=== PATIENT | female | born 1945 | race Caucasian/White ===

== ENCOUNTER → 2021-04-03 | Outpatient (CLI) | payer MEDICARE, BC ==
[~2021-04-03] MED LIST: ANASTROZOLE1 MG PO; ASPIRIN325 PO; CALCIUM 600 +1 EAC1 PO; METAMUCIL PAC1 UDPKT PO; MILK OF MA2400 MG/10 PO; NEURONTIN 300300 M1 PO; OXYCODONE HCL 55 MG PO; VITAMIN D2000 UNIT PO
== END ==
LOC: M.MRI 14:23
PROVIDERS: ATTEND Psychiatry & Neurology Neuromuscular Medicine
DX: G20 Parkinson's disease (principal); I67.82 Cerebral ischemia; F03.90 Unspecified dementia, unspecified severity, without behavioral disturbance, psychotic disturbance, mood disturbance, and anxiety; Z98.42 Cataract extraction status, left eye; Z98.41 Cataract extraction status, right eye